=== PATIENT | female | born 1970 | race Two or more races ===

== ENCOUNTER → 2024-05-16 | Outpatient (CLI) | payer BC, SELFPAY ==
--- NOTE | 2024-05-16 10:00 | XR_ITS ---
Examination: Abdomen sonogram, Limited Date and time of exam: May 16, 2024 0937 hours INDICATIONS: Left upper abdominal pain beginning 2 months ago Technique: Real-time moore scale transabdominal sonographic images of the upper abdomen obtained. Findings: Cholelithiasis Gallbladder wall 0.7 cm with edema Common bile neck 0.6 cm Pancreatic head 2.1 cm There are 13.6 cm irregular contour no focal liver lesions Normal hepatopedal portal venous flow Patent IVC IMPRESSION: Calculus cholecystitis Enlarged common bile duct 0.6 cm, consider MRCP follow-up
== END | disposition home or self-care (01) ==
PROVIDERS: PCP Family Medicine; Referring Provider Internal Medicine Gastroenterology; Visit Provider Internal Medicine Gastroenterology
DX: K80.50 Calculus of bile duct without cholangitis or cholecystitis without obstruction (principal); K81.9 Cholecystitis, unspecified; K83.8 Other specified diseases of biliary tract
CPT/HCPCS: 76705

== ENCOUNTER → 2024-10-11 | Outpatient (CLI) | payer BC, SELFPAY ==
--- NOTE | 2024-10-11 10:15 | XR_ITS ---
MRI abdomen, without contrast. MRCP Date and time of exam: October 11, 2024, 0951 hours INDICATIONS: Abdominal pain and bloating 5 days, liver sonogram May 16, 2024 cholelithiasis, thickened gallbladder wall 0.7 cm enlarged common bile duct Technique: Multiple axial and coronal images of the abdomen have been obtained with the Siemens 1.5T MRI scanner. Images obtained included T1 weighted transverse images, T2-weighted transverse images, T2-weighted transverse images fat-suppressed, T2 weighted haste fat suppressed transverse images, T1 weighted images, in and out of phase images, T2-weighted coronal images, breath hold, T2 weighted haze coronal images as well as T2 weighted coronal thick slab images, MRCP. Findings: Cirrhosis, liver nodular in contour Significant ascites Prominent splenomegaly Gallstones Gallbladder wall is thickened but the patient has ascites Common bile duct and common hepatic duct are not enlarged and no stones No dilated pancreatic duct Aorta normal size No hydronephrosis IMPRESSION: Cirrhosis Prominent splenomegaly Significant ascites Cholelithiasis Gallbladder wall is thickened but the patient has ascites, suggest HIDA scan follow-up to assess for cystic duct obstruction as clinically warranted. No common hepatic or common bile duct stones
== END | disposition home or self-care (01) ==
PROVIDERS: PCP Family Medicine; Referring Provider Specialist; Visit Provider Specialist
DX: K74.60 Unspecified cirrhosis of liver (principal); R16.1 Splenomegaly, not elsewhere classified; R18.8 Other ascites; K80.20 Calculus of gallbladder without cholecystitis without obstruction; K82.8 Other specified diseases of gallbladder
CPT/HCPCS: 74181